=== PATIENT | female | born 2000 | race Caucasian/White ===

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

== ENCOUNTER 2018-01-24 03:37 | Inpatient (IN) | payer OTHER ==
[2018-01-24] VITALS (9 sets, daily range): BP systolic 87–134; BP diastolic 42–87
[~2018-01-24] VITALS: Ht 142.2 cm; Wt 44.1 kg
--- NOTE | ~2018-01-24 | EKG ---
[place], [place] ELECTROCARDIOGRAM REPORT NAME: GIFTY MULLEN UNIT #: [id number] ROOM: [facility] DOCTOR: SANDEEP DRAFT REPORT BIRTHDATE: [birth year] 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
[~2018-01-24 03:37] MED LIST changes: +APAP325 MG PO
[2018-01-24 04:41] LABS: BILIRUBIN NEGATIVE (NEGATIVE); BLOOD NEGATIVE (NEGATIVE); CLARITY SL CLOUDY (CLEAR); COLOR YELLOW (YELLOW); GLUCOSE 3+ (NEGATIVE); KETONE 3+ (NEGATIVE); LEUKO ESTERASE NEGATIVE (NEGATIVE); NITRITE NEGATIVE (NEGATIVE); PH 5.5 (5.0-9.0); SPECIFIC GRAVITY >= 1.030 (1.005-1.030); UROBILINOGEN 0.2 E.U./dl (0.2-1.0)
[2018-01-24 04:48] LABS: BASO # 0.1 10*3/uL (0.0-0.1); BASO % 0.7 % (0.0-1.0); EOS # 0.1 10*3/uL (0.0-0.4); EOS % 0.6 % (1.0-4.0); HEMATOCRIT 45.3 % (37.0-47.0); HEMOGLOBIN 15.9 g/dl (12.0-16.0); LYMPH # 3.9 10*3/uL (1.3-4.4); LYMPH % 34.7 % (27.0-41.0); MEAN CELL VOLUME 87.5 fl (81.0-99.0); MEAN CORPUSCULAR HGB 30.7 pg (27.0-31.0); MEAN CORPUSCULAR HGB CONC 35.1 g/dl (33.0-37.0); MEAN PLATELET VOLUME 10.9 fl (9.6-12.3); MONO # 0.7 10*3/uL (0.1-1.0); NEUT # 6.4 10*3/uL (2.3-7.9); NEUT % 57.7 % (47.0-73.0); PLATELET COUNT AUTOMATED 293 10*3/uL (130-400); RED BLOOD COUNT 5.18 10*6/uL (4.10-5.10); WHITE BLOOD COUNT 11.1 10*3/uL (4.8-10.8)
[2018-01-24 04:52] LABS: BACTERIA 3+
[2018-01-24 05:08] LABS: ALBUMIN 4.7 gm/dl (3.1-4.5); ALKALINE PHOSPHATASE 130 U/L (45-117); BUN 19 mg/dl (7-24); CHLORIDE 96 mmol/L (98-107); CREATININE 0.93 mg/dL (0.55-1.02); POTASSIUM 4.3 mmol/L (3.5-5.1); SGOT/AST 14 IU/L (3-35); SGPT/ALT 18 U/L (12-78); SODIUM 132 mmol/L (136-145); TOTAL PROTEIN 8.6 gm/dL (6.4-8.2); TROPONIN I < 0.015 ng/ml (<0.045)
[2018-01-24 08:40] LABS: ALBUMIN 3.4 gm/dl (3.1-4.5); ALKALINE PHOSPHATASE 87 U/L (45-117); BUN 14 mg/dl (7-24); CHLORIDE 108 mmol/L (98-107); CREATININE 0.58 mg/dL (0.55-1.02); SGOT/AST 9 IU/L (3-35); SGPT/ALT 13 U/L (12-78); SODIUM 137 mmol/L (136-145); TOTAL PROTEIN 6.2 gm/dL (6.4-8.2)
[2018-01-24 11:19] LABS: ALBUMIN 2.9 gm/dl (3.1-4.5); ALKALINE PHOSPHATASE 76 U/L (45-117); BUN 11 mg/dl (7-24); CHLORIDE 113 mmol/L (98-107); CREATININE 0.59 mg/dL (0.55-1.02); SGOT/AST 7 IU/L (3-35); SGPT/ALT 12 U/L (12-78); SODIUM 139 mmol/L (136-145); TOTAL PROTEIN 5.5 gm/dL (6.4-8.2)
[2018-01-24 16:42] LABS: BUN 10 mg/dl (7-24); CHLORIDE 113 mmol/L (98-107); CREATININE 0.77 mg/dL (0.55-1.02); SODIUM 138 mmol/L (136-145)
[2018-01-24 23:34] LABS: BUN 13 mg/dl (7-24); CHLORIDE 111 mmol/L (98-107); POTASSIUM 3.8 mmol/L (3.5-5.1); SODIUM 141 mmol/L (136-145)
[2018-01-25] VITALS: BP 82/49
[2018-01-25 04:00] VITALS: BP 92/53
[2018-01-25 05:47] LABS: BUN 11 mg/dl (7-24); CHLORIDE 111 mmol/L (98-107); CREATININE 0.49 mg/dL (0.55-1.02); PHOSPHOROUS 3.3 mg/dL (2.5-4.9); POTASSIUM 3.8 mmol/L (3.5-5.1); SODIUM 142 mmol/L (136-145)
[2018-01-25 06:07] LABS: BASO # 0.1 10*3/uL (0.0-0.1); BASO % 0.9 % (0.0-1.0); EOS # 0.2 10*3/uL (0.0-0.4); EOS % 2.4 % (1.0-4.0); LYMPH # 3.4 10*3/uL (1.3-4.4); LYMPH % 49.9 % (27.0-41.0); MEAN CELL VOLUME 87.8 fl (81.0-99.0); MEAN CORPUSCULAR HGB 31.2 pg (27.0-31.0); MEAN CORPUSCULAR HGB CONC 35.5 g/dl (33.0-37.0); MEAN PLATELET VOLUME 10.8 fl (9.6-12.3); MONO # 0.6 10*3/uL (0.1-1.0); MONO % 8.2 % (3.0-9.0); NEUT # 2.6 10*3/uL (2.3-7.9); NEUT % 38.5 % (47.0-73.0); PLATELET COUNT AUTOMATED 215 10*3/uL (130-400); RED BLOOD COUNT 3.85 10*6/uL (4.10-5.10); RED CELL DISTRI WIDTH 12.5 % (0-14.5); WHITE BLOOD COUNT 6.7 10*3/uL (4.8-10.8)
[2018-01-25 06:10] LABS: HEMATOCRIT 33.8 % (37.0-47.0)
[2018-01-25 08:00] VITALS: BP 88/50
[2018-01-25 12:00] VITALS: BP 90/54
[2018-01-25] MEDS ORDERED: OMNICEF300 MG PO (16:26)
== END 2018-01-25 16:37 | disposition home or self-care (01) | DRG 689 ==
LOC: ED 03:37 → ICCU 05:31 → EDHOLD 05:31 → ICCU 05:48 → 4E 01-25 13:50
PROVIDERS: Emergency Medicine; Internal Medicine; Student in an Organized Health Care Education/Training Program
DX: N39.0 Urinary tract infection, site not specified (principal); E10.10 Type 1 diabetes mellitus with ketoacidosis without coma; E55.9 Vitamin D deficiency, unspecified; J45.909 Unspecified asthma, uncomplicated; Z82.49 Family history of ischemic heart disease and other diseases of the circulatory system; Z91.030 Bee allergy status; Z79.899 Other long term (current) drug therapy; Z98.891 History of uterine scar from previous surgery; Z83.3 Family history of diabetes mellitus; Z85.43 Personal history of malignant neoplasm of ovary

== ENCOUNTER 2018-02-03 01:35 | Inpatient (IN) | payer OTHER ==
[~2018-02-03] VITALS: Ht 142.2 cm; Wt 46.3 kg
[2018-02-03] VITALS (10 sets, daily range): BP systolic 86–111; BP diastolic 42–59
--- NOTE | ~2018-02-03 | EKG ---
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
--- NOTE | ~2018-02-03 | PR ---
[place], [place] PROGRESS NOTE NAME: GIFTY MULLEN UNIT #: [id number] ROOM: 530 DOCTOR: JASON LIMON MD BIRTHDATE: [birth year] DOS: 02/05/2018 SUBJECTIVE: The patient has been admitted to the hospital with pain in the back with acute urinary tract infection and uncontrolled diabetes mellitus. She is feeling better today. She does not have any nausea, no vomiting, no diarrhea, no fever or chills, no pain in the back and she is eating fairly good without much problem. She has juvenile diabetes and on insulin pump. Her basic metabolic profile today shows glucose 149, BUN 4, creatinine 0.5, chloride 111, potassium 7.3, other values are all normal. Her urine culture is negative. Her blood culture is negative. WILMER, MRSA is positive. PHYSICAL EXAMINATION: VITAL SIGNS: Her blood pressure is 128/88, pulse 68, respirations 16, temperature 98.2. CHEST: Clear. HEART: Regular. ABDOMEN: Soft. AJSON LIMON MD CM:PNTRANS [id number] JASON LIMON MD 02/07/18 1054 interface
[~2018-02-03 01:35] MED LIST changes: +OMNICEF300 MG PO
[2018-02-03 02:37] LABS: BASO # 0.1 10*3/uL (0.0-0.1); BASO % 0.4 % (0.0-1.0); HEMATOCRIT 39.8 % (37.0-47.0); LYMPH # 2.2 10*3/uL (1.3-4.4); LYMPH % 10.6 % (27.0-41.0); MEAN CELL VOLUME 94.1 fl (81.0-99.0); MEAN CORPUSCULAR HGB 30.7 pg (27.0-31.0); MEAN CORPUSCULAR HGB CONC 32.7 g/dl (33.0-37.0); MEAN PLATELET VOLUME 10.8 fl (9.6-12.3); MONO # 1.2 10*3/uL (0.1-1.0); MONO % 5.7 % (3.0-9.0); NEUT # 17.2 10*3/uL (2.3-7.9); NEUT % 82.8 % (47.0-73.0); PLATELET COUNT AUTOMATED 334 10*3/uL (130-400); RED BLOOD COUNT 4.23 10*6/uL (4.10-5.10); RED CELL DISTRI WIDTH 12.8 % (0-14.5); WHITE BLOOD COUNT 20.8 10*3/uL (4.8-10.8)
[2018-02-03 02:53] LABS: ALBUMIN 3.9 gm/dl (3.1-4.5); ALKALINE PHOSPHATASE 87 U/L (45-117); BUN 13 mg/dl (7-24); CHLORIDE 104 mmol/L (98-107); CREATININE 1.01 mg/dL (0.55-1.02); LIPASE 56 U/L (73-393); POTASSIUM 5.2 mmol/L (3.5-5.1); SGOT/AST 16 IU/L (3-35); SGPT/ALT 17 U/L (12-78); SODIUM 137 mmol/L (136-145); TOTAL PROTEIN 7.2 gm/dL (6.4-8.2)
[2018-02-03 02:56] LABS: B-hCG (QUALITATIVE) NEGATIVE (NEGATIVE)
[2018-02-03 04:52] LABS: BILIRUBIN NEGATIVE (NEGATIVE); BLOOD 3+ (NEGATIVE); CLARITY CLEAR (CLEAR); COLOR YELLOW (YELLOW); GLUCOSE 3+ (NEGATIVE); KETONE 3+ (NEGATIVE); LEUKO ESTERASE NEGATIVE (NEGATIVE); NITRITE NEGATIVE (NEGATIVE); UROBILINOGEN 0.2 E.U./dl (0.2-1.0)
[2018-02-03 04:54] LABS: ABG HCO3 3.6 mmol/l (22-26); ABG O2 SATURATION 97.8 % (95-97)
[2018-02-03 04:59] LABS: ABG BASE EXCESS -25.1 mmol/L (-2.0-2.0); ARTERIAL BLOOD GAS PCO2 11.9 mmHg (35-45); ARTERIAL BLOOD GAS PH 7.113 (7.35-7.45)
[2018-02-03 05:06] LABS: BACTERIA 2+; WBC 0-2 wbc/hpf (0-5)
[2018-02-03] MEDS ORDERED: ACCU-CHEK COMB1 EACH MC (05:58)
[2018-02-03 06:30] LABS: MEAN CELL VOLUME 94.9 fl (81.0-99.0); MEAN CORPUSCULAR HGB 31.4 pg (27.0-31.0); MEAN CORPUSCULAR HGB CONC 33.1 g/dl (33.0-37.0); MEAN PLATELET VOLUME 10.4 fl (9.6-12.3); PLATELET COUNT AUTOMATED 244 10*3/uL (130-400); RED CELL DISTRI WIDTH 12.9 % (0-14.5); WHITE BLOOD COUNT 25.3 10*3/uL (4.8-10.8)
[2018-02-03 06:31] LABS: HEMATOCRIT 33.2 % (37.0-47.0)
[2018-02-03 06:45] LABS: ALBUMIN 2.8 gm/dl (3.1-4.5); ALKALINE PHOSPHATASE 64 U/L (45-117); BUN 10 mg/dl (7-24); CHLORIDE 120 mmol/L (98-107); CREATININE 0.72 mg/dL (0.55-1.02); PHOSPHOROUS 2.2 mg/dL (2.5-4.9); POTASSIUM 4.4 mmol/L (3.5-5.1); SGOT/AST 18 IU/L (3-35); SGPT/ALT 17 U/L (12-78); SODIUM 145 mmol/L (136-145); TOTAL PROTEIN 5.2 gm/dL (6.4-8.2)
[2018-02-03 07:04] LABS: BASOPHILS 1 % (0-1); BURR CELLS FEW; PLATELET SUFFICIENCY NORMAL (NORMAL); TOTAL CELLS COUNTED 100 #CELLS
[2018-02-03 09:03] LABS: BUN 9 mg/dl (7-24); CHLORIDE 119 mmol/L (98-107); CREATININE 0.74 mg/dL (0.55-1.02); POTASSIUM 4.2 mmol/L (3.5-5.1); SODIUM 143 mmol/L (136-145)
[2018-02-03 11:37] LABS: BUN 8 mg/dl (7-24); CHLORIDE 116 mmol/L (98-107); CREATININE 0.76 mg/dL (0.55-1.02); POTASSIUM 4.2 mmol/L (3.5-5.1); SODIUM 141 mmol/L (136-145)
[2018-02-03 15:10] LABS: BUN 7 mg/dl (7-24); CHLORIDE 113 mmol/L (98-107); CREATININE 0.71 mg/dL (0.55-1.02); SODIUM 138 mmol/L (136-145)
[2018-02-03 18:28] LABS: BUN 6 mg/dl (7-24); CHLORIDE 114 mmol/L (98-107); CREATININE 0.76 mg/dL (0.55-1.02); POTASSIUM 3.4 mmol/L (3.5-5.1); SODIUM 138 mmol/L (136-145)
[2018-02-03 22:21] LABS: BUN 6 mg/dl (7-24); CHLORIDE 116 mmol/L (98-107); POTASSIUM 4.1 mmol/L (3.5-5.1); SODIUM 140 mmol/L (136-145)
[2018-02-04] VITALS: BP 92/62
[2018-02-04 01:47] LABS: BASO % 0.2 % (0.0-1.0); EOS # 0.1 10*3/uL (0.0-0.4); EOS % 0.4 % (1.0-4.0); HEMATOCRIT 30.4 % (37.0-47.0); HEMOGLOBIN 10.5 g/dl (12.0-16.0); LYMPH # 2.6 10*3/uL (1.3-4.4); LYMPH % 18.4 % (27.0-41.0); MEAN CORPUSCULAR HGB 31.3 pg (27.0-31.0); MEAN CORPUSCULAR HGB CONC 34.5 g/dl (33.0-37.0); MONO # 1.1 10*3/uL (0.1-1.0); MONO % 7.5 % (3.0-9.0); NEUT # 10.3 10*3/uL (2.3-7.9); NEUT % 73.2 % (47.0-73.0); PLATELET COUNT AUTOMATED 207 10*3/uL (130-400); RED BLOOD COUNT 3.36 10*6/uL (4.10-5.10); WHITE BLOOD COUNT 14.1 10*3/uL (4.8-10.8)
[2018-02-04 01:48] LABS: MEAN CELL VOLUME 90.5 fl (81.0-99.0)
[2018-02-04 01:59] LABS: BUN 5 mg/dl (7-24); CHLORIDE 114 mmol/L (98-107); CREATININE 0.55 mg/dL (0.55-1.02); POTASSIUM 3.6 mmol/L (3.5-5.1); SODIUM 140 mmol/L (136-145)
[2018-02-04 04:00] VITALS: BP 82/36
[2018-02-04 06:28] LABS: BUN 5 mg/dl (7-24); CHLORIDE 114 mmol/L (98-107); POTASSIUM 3.8 mmol/L (3.5-5.1); SODIUM 140 mmol/L (136-145)
[2018-02-04 08:00] VITALS: BP 100/80; BP 107/74
[2018-02-04 12:00] VITALS: BP 110/70
[2018-02-04 15:15] LABS: BUN 4 mg/dl (7-24); CHLORIDE 111 mmol/L (98-107); CREATININE 0.54 mg/dL (0.55-1.02); POTASSIUM 4.1 mmol/L (3.5-5.1); SODIUM 141 mmol/L (136-145)
[2018-02-04 16:00] VITALS: BP 116/80
[2018-02-04 20:00] VITALS: BP 124/88
[2018-02-05] VITALS: BP 138/82
[2018-02-05 08:00] VITALS: BP 116/65
[2018-02-05 12:00] VITALS: BP 128/88
== END 2018-02-05 14:42 | disposition left against medical advice (07) | DRG 871 ==
LOC: ED 01:35 → ICCU 03:12 → 5E 03:12 → EDHOLD 03:12 → ICCU 04:17 → 5E 02-04 17:53
PROVIDERS: Emergency Medicine Emergency Medical Services; Internal Medicine Nephrology; Student in an Organized Health Care Education/Training Program
PROC: 02H633Z Insertion of Infusion Device into Right Atrium, Percutaneous Approach (ICD-10-PCS; principal; 2018-02-03)
PROC: B244ZZZ Ultrasonography of Right Heart (ICD-10-PCS; 2018-02-03)
DX: A41.9 Sepsis, unspecified organism (principal); E10.10 Type 1 diabetes mellitus with ketoacidosis without coma; J96.01 Acute respiratory failure with hypoxia; N12 Tubulo-interstitial nephritis, not specified as acute or chronic; E87.5 Hyperkalemia; J45.909 Unspecified asthma, uncomplicated; M54.9 Dorsalgia, unspecified; E55.9 Vitamin D deficiency, unspecified; R65.20 Severe sepsis without septic shock; Z91.030 Bee allergy status; Z87.440 Personal history of urinary (tract) infections; Z98.891 History of uterine scar from previous surgery; Z80.41 Family history of malignant neoplasm of ovary; Z83.3 Family history of diabetes mellitus; Z82.49 Family history of ischemic heart disease and other diseases of the circulatory system

== ENCOUNTER → 2018-03-10 | Outpatient (CLI) | payer OTHER ==
[~2018-03-10] MED LIST changes: +ACCU-CHEK COMB1 EACH MC
== END | disposition home or self-care (01) ==
LOC: US 15:00
DX: N80.9 Endometriosis, unspecified (principal); R10.2 Pelvic and perineal pain

== ENCOUNTER 2018-11-03 21:23 | Emergency (ER) | payer SELFPAY ==
[~2018-11-03] VITALS: Wt 54.4 kg
[2018-11-03 21:23] VITALS: BP 110/86
[~2018-11-03 21:23] MED LIST changes: +DIFLUCAN150 MG PO; +FLAGYL500 MG PO
[2018-11-03 21:53] LABS: BILIRUBIN NEGATIVE (NEGATIVE); BLOOD NEGATIVE (NEGATIVE); CLARITY CLEAR (CLEAR); COLOR YELLOW (YELLOW); GLUCOSE NEGATIVE (NEGATIVE); KETONE NEGATIVE (NEGATIVE); LEUKO ESTERASE TRACE (NEGATIVE); NITRITE NEGATIVE (NEGATIVE); SPECIFIC GRAVITY 1.025 (1.005-1.030)
[2018-11-03 22:01] LABS: BACTERIA TRACE; EPITHELIAL CELLS 21-30; WBC 21-30 wbc/hpf (0-5)
[2018-11-03 22:24] LABS: BASO # 0.1 10*3/uL (0.0-0.1); BASO % 0.5 % (0.0-1.0); EOS # 0.1 10*3/uL (0.0-0.4); EOS % 0.6 % (1.0-4.0); HEMATOCRIT 42.3 % (37.0-47.0); HEMOGLOBIN 14.4 g/dl (12.0-16.0); LYMPH # 2.9 10*3/uL (1.3-4.4); LYMPH % 20.2 % (27.0-41.0); MEAN CELL VOLUME 87.9 fl (81.0-99.0); MEAN CORPUSCULAR HGB 29.9 pg (27.0-31.0); MEAN PLATELET VOLUME 10.2 fl (9.6-12.3); MONO # 0.7 10*3/uL (0.1-1.0); MONO % 4.8 % (3.0-9.0); NEUT # 10.7 10*3/uL (2.3-7.9); NEUT % 73.6 % (47.0-73.0); PLATELET COUNT AUTOMATED 301 10*3/uL (130-400); RED BLOOD COUNT 4.81 10*6/uL (4.10-5.10); RED CELL DISTRI WIDTH 12.1 % (0-14.5); WHITE BLOOD COUNT 14.5 10*3/uL (4.8-10.8)
[2018-11-03 22:40] LABS: ALBUMIN 3.8 gm/dl (3.1-4.5); ALKALINE PHOSPHATASE 114 U/L (45-117); BUN 18 mg/dl (7-24); CHLORIDE 104 mmol/L (98-107); CREATININE 1.06 mg/dL (0.55-1.02); LIPASE 72 U/L (73-393); POTASSIUM 3.6 mmol/L (3.5-5.1); SGOT/AST 13 IU/L (3-35); SGPT/ALT 17 U/L (12-78); SODIUM 139 mmol/L (136-145); TOTAL PROTEIN 7.7 gm/dL (6.4-8.2)
[2018-11-03 22:43] LABS: B-hCG (QUALITATIVE) NEGATIVE (NEGATIVE)
[2018-11-04] MEDS ORDERED: AMINOPHYLLIN200 MG PO (01:46)
== END 2018-11-04 01:54 | disposition home or self-care (01) ==
LOC: ED 21:23
PROVIDERS: Physician Assistant
DX: N39.0 Urinary tract infection, site not specified (principal); N89.8 Other specified noninflammatory disorders of vagina; F17.200 Nicotine dependence, unspecified, uncomplicated; Z91.030 Bee allergy status

== ENCOUNTER → 2018-12-08 | Outpatient (CLI) | payer SELFPAY ==
[~2018-12-08] MED LIST changes: +AMINOPHYLLIN200 MG PO
[2018-12-08 09:30] LABS: BILIRUBIN NEGATIVE (NEGATIVE); BLOOD NEGATIVE (NEGATIVE); CLARITY SL CLOUDY (CLEAR); COLOR YELLOW (YELLOW); GLUCOSE 3+ (NEGATIVE); KETONE 2+ (NEGATIVE); LEUKO ESTERASE 1+ (NEGATIVE); NITRITE NEGATIVE (NEGATIVE); UROBILINOGEN 0.2 E.U./dl (0.2-1.0)
[2018-12-08 09:36] LABS: BACTERIA 1+; WBC TNTC wbc/hpf (0-5)
== END | disposition home or self-care (01) ==
LOC: RESCLI 00:45
PROVIDERS: Internal Medicine
DX: E10.65 Type 1 diabetes mellitus with hyperglycemia (principal); J45.20 Mild intermittent asthma, uncomplicated; B37.3 Candidiasis of vulva and vagina; R53.83 Other fatigue

== ENCOUNTER 2019-02-08 13:48 | Emergency (ER) | payer OTHER ==
[~2019-02-08] VITALS: Ht 142.2 cm; Wt 46.7 kg
[2019-02-08 13:49] VITALS: BP 123/83
[2019-02-08] MEDS ORDERED: IBUPROFEN600 MG PO (15:32)
[2019-02-08] MEDS ORDERED: AMOXICILLIN500 M2 PO ×2 (15:32→15:51)
== END 2019-02-08 16:08 | disposition home or self-care (01) ==
LOC: ED 13:48
DX: K02.9 Dental caries, unspecified (principal); E11.9 Type 2 diabetes mellitus without complications; J45.909 Unspecified asthma, uncomplicated; Z91.030 Bee allergy status; Z79.4 Long term (current) use of insulin

== ENCOUNTER → 2019-02-14 | Outpatient (CLI) | payer OTHER ==
[~2019-02-14] MED LIST changes: +AMOXICILLIN500 M2 PO; +IBUPROFEN600 MG PO
[2019-02-14 12:43] LABS: BASO # 0.1 10*3/uL (0.0-0.1); EOS # 0.1 10*3/uL (0.0-0.4); EOS % 1.9 % (1.0-4.0); HEMATOCRIT 39.5 % (37.0-47.0); HEMOGLOBIN 13.7 g/dl (12.0-16.0); LYMPH # 2.5 10*3/uL (1.3-4.4); MEAN CELL VOLUME 87.8 fl (81.0-99.0); MEAN CORPUSCULAR HGB 30.4 pg (27.0-31.0); MEAN CORPUSCULAR HGB CONC 34.7 g/dl (33.0-37.0); MEAN PLATELET VOLUME 10.1 fl (9.6-12.3); MONO # 0.5 10*3/uL (0.1-1.0); MONO % 7.6 % (3.0-9.0); NEUT # 3.1 10*3/uL (2.3-7.9); NEUT % 49.3 % (47.0-73.0); PLATELET COUNT AUTOMATED 301 10*3/uL (130-400); RED CELL DISTRI WIDTH 12.1 % (0-14.5); WHITE BLOOD COUNT 6.2 10*3/uL (4.8-10.8)
[2019-02-14 12:59] LABS: ALBUMIN 3.5 gm/dl (3.1-4.5); ALKALINE PHOSPHATASE 86 U/L (45-117); BUN 14 mg/dl (7-24); CHLORIDE 104 mmol/L (98-107); CHOLESTEROL 146 mg/dL (<200); CREATININE 0.63 mg/dL (0.55-1.02); HDL CHOLESTEROL 39 mg/dl (40-60); LDL CHOLESTEROL 76 mg/dL (9-159); SGOT/AST 11 IU/L (3-35); SGPT/ALT 21 U/L (12-78); SODIUM 137 mmol/L (136-145); TOTAL PROTEIN 7.2 gm/dL (6.4-8.2); TRIGLYCERIDES 154 mg/dl (<150); VLDL CHOLESTEROL 31 mg/dL (6-40)
[2019-02-14 13:10] LABS: BILIRUBIN NEGATIVE (NEGATIVE); BLOOD NEGATIVE (NEGATIVE); CLARITY SL CLOUDY (CLEAR); COLOR YELLOW (YELLOW); GLUCOSE TRACE (NEGATIVE); KETONE 1+ (NEGATIVE); LEUKO ESTERASE 1+ (NEGATIVE); NITRITE NEGATIVE (NEGATIVE)
[2019-02-14 13:58] LABS: BACTERIA 3+; YEAST 2+
[2019-02-14 13:59] LABS: WBC 21-30 wbc/hpf (0-5)
== END | disposition home or self-care (01) ==
LOC: RESCLI 01:28
PROVIDERS: Internal Medicine
DX: Z30.011 Encounter for initial prescription of contraceptive pills (principal); E10.65 Type 1 diabetes mellitus with hyperglycemia; J45.20 Mild intermittent asthma, uncomplicated; A59.01 Trichomonal vulvovaginitis; E55.9 Vitamin D deficiency, unspecified; Z79.899 Other long term (current) drug therapy; Z79.4 Long term (current) use of insulin

== ENCOUNTER 2019-04-08 14:26 | Emergency (ER) | payer OTHER ==
[~2019-04-08] VITALS: Ht 142.2 cm; Wt 49.0 kg
[2019-04-08 14:40] VITALS: BP 121/82
[2019-04-08 15:10] LABS: BILIRUBIN NEGATIVE (NEGATIVE); BLOOD 3+ (NEGATIVE); CLARITY CLEAR (CLEAR); COLOR YELLOW (YELLOW); GLUCOSE NEGATIVE (NEGATIVE); KETONE NEGATIVE (NEGATIVE); LEUKO ESTERASE NEGATIVE (NEGATIVE); NITRITE NEGATIVE (NEGATIVE); SPECIFIC GRAVITY 1.025 (1.005-1.030); UROBILINOGEN 0.2 E.U./dl (0.2-1.0)
[2019-04-08 15:16] LABS: BACTERIA 1+; EPITHELIAL CELLS 21-30
[2019-04-08 15:27] LABS: BASO # 0.1 10*3/uL (0.0-0.1); BASO % 0.9 % (0.0-1.0); EOS # 0.2 10*3/uL (0.0-0.4); HEMATOCRIT 41.5 % (37.0-47.0); HEMOGLOBIN 14.3 g/dl (12.0-16.0); LYMPH # 3.1 10*3/uL (1.3-4.4); LYMPH % 48.2 % (27.0-41.0); MEAN CELL VOLUME 86.8 fl (81.0-99.0); MEAN CORPUSCULAR HGB 29.9 pg (27.0-31.0); MEAN CORPUSCULAR HGB CONC 34.5 g/dl (33.0-37.0); MONO # 0.5 10*3/uL (0.1-1.0); MONO % 7.3 % (3.0-9.0); NEUT # 2.6 10*3/uL (2.3-7.9); NEUT % 40.4 % (47.0-73.0); PLATELET COUNT AUTOMATED 325 10*3/uL (130-400); RED BLOOD COUNT 4.78 10*6/uL (4.10-5.10); RED CELL DISTRI WIDTH 12.4 % (0-14.5); WHITE BLOOD COUNT 6.4 10*3/uL (4.8-10.8)
[2019-04-08 15:44] LABS: ALBUMIN 3.6 gm/dl (3.1-4.5); BUN 14 mg/dl (7-24); CHLORIDE 110 mmol/L (98-107); CREATININE 0.81 mg/dL (0.55-1.02); POTASSIUM 3.9 mmol/L (3.5-5.1); SGOT/AST 10 IU/L (3-35); SGPT/ALT 19 U/L (12-78); SODIUM 141 mmol/L (136-145)
[2019-04-08 15:46] LABS: ALKALINE PHOSPHATASE 98 U/L (45-117)
== END 2019-04-08 15:56 | disposition home or self-care (01) ==
LOC: ED 14:26
PROVIDERS: Nurse Practitioner Family
DX: N94.6 Dysmenorrhea, unspecified (principal); J45.909 Unspecified asthma, uncomplicated; E10.9 Type 1 diabetes mellitus without complications; Z91.030 Bee allergy status; Z79.899 Other long term (current) drug therapy; Z79.2 Long term (current) use of antibiotics; Z79.4 Long term (current) use of insulin

== ENCOUNTER 2019-05-21 13:34 | Emergency (ER) | payer OTHER ==
[~2019-05-21] VITALS: Ht 142.2 cm; Wt 49.0 kg
[2019-05-21 13:44] VITALS: BP 123/77
[2019-05-21] MEDS ORDERED: VIBRAMYCIN100 MG PO (14:28)
[2019-05-21 14:58] LABS: BILIRUBIN NEGATIVE (NEGATIVE); BLOOD 2+ (NEGATIVE); CLARITY CLEAR (CLEAR); COLOR YELLOW (YELLOW); GLUCOSE 3+ (NEGATIVE); KETONE 2+ (NEGATIVE); LEUKO ESTERASE NEGATIVE (NEGATIVE); NITRITE NEGATIVE (NEGATIVE); UROBILINOGEN 0.2 E.U./dl (0.2-1.0)
[2019-05-21 14:59] LABS: BACTERIA 1+
[2019-05-24 16:10] LABS: GONOCOCCUS BY NAA Negative (Negative)
== END 2019-05-21 14:33 | disposition home or self-care (01) ==
LOC: ED 13:34
PROVIDERS: Emergency Medicine
DX: R11.0 Nausea (principal); Z20.2 Contact with and (suspected) exposure to infections with a predominantly sexual mode of transmission; E10.9 Type 1 diabetes mellitus without complications; F17.200 Nicotine dependence, unspecified, uncomplicated; J45.909 Unspecified asthma, uncomplicated; Z79.899 Other long term (current) drug therapy; Z79.2 Long term (current) use of antibiotics; Z79.4 Long term (current) use of insulin

== ENCOUNTER 2019-06-13 22:37 | Emergency (ER) | payer OTHER ==
[~2019-06-13] VITALS: Ht 142.2 cm; Wt 45.4 kg
[~2019-06-13 22:37] MED LIST changes: +VIBRAMYCIN100 MG PO
[2019-06-13 22:46] VITALS: BP 115/81
[2019-06-13] MEDS ORDERED: HUMALOG100 UNIT/1 SQ (22:48)
[2019-06-13] MEDS ORDERED: AMOXICILLIN500 M2 PO (23:55)
== END 2019-06-14 00:10 | disposition home or self-care (01) ==
LOC: ED 22:37
DX: J03.90 Acute tonsillitis, unspecified (principal); J45.909 Unspecified asthma, uncomplicated; E10.9 Type 1 diabetes mellitus without complications; Z91.030 Bee allergy status

== ENCOUNTER 2019-07-10 14:00 | Inpatient (IN) | payer OTHER ==
[~2019-07-10] VITALS: Ht 142.2 cm; Wt 46.0 kg
[2019-07-10] VITALS (7 sets, daily range): BP systolic 105–128; BP diastolic 56–88
[~2019-07-10 14:00] MED LIST changes: +HUMALOG100 UNIT/1 SQ
--- NOTE | 2019-07-10 14:43 | NUR ---
MEDICATIONS PER Bonnie KIDD RN
[2019-07-10 15:22] LABS: BASO # 0.1 10*3/uL (0.0-0.1); BASO % 1.2 % (0.0-1.0); EOS % 0.2 % (1.0-4.0); HEMATOCRIT 44.7 % (37.0-47.0); LYMPH # 2.7 10*3/uL (1.3-4.4); LYMPH % 28.7 % (27.0-41.0); MEAN CELL VOLUME 87.1 fl (81.0-99.0); MEAN CORPUSCULAR HGB CONC 35.6 g/dl (33.0-37.0); MEAN PLATELET VOLUME 10.6 fl (9.6-12.3); MONO # 0.5 10*3/uL (0.1-1.0); MONO % 5.1 % (3.0-9.0); NEUT % 64.6 % (47.0-73.0); PLATELET COUNT AUTOMATED 303 10*3/uL (130-400); RED BLOOD COUNT 5.13 10*6/uL (4.10-5.10); WHITE BLOOD COUNT 9.3 10*3/uL (4.8-10.8)
[2019-07-10 15:35] LABS: INTERNATIONAL NORM RATIO 0.9 (2.0-3.5)
[2019-07-10 15:40] LABS: ALBUMIN 3.9 gm/dl (3.1-4.5); ALKALINE PHOSPHATASE 127 U/L (45-117); BUN 21 mg/dl (7-24); CHLORIDE 101 mmol/L (98-107); CREATININE 0.86 mg/dL (0.55-1.02); LIPASE 45 U/L (73-393); POTASSIUM 4.2 mmol/L (3.5-5.1); SGOT/AST 20 IU/L (3-35); SGPT/ALT 22 U/L (12-78); SODIUM 131 mmol/L (136-145); TOTAL PROTEIN 7.8 gm/dL (6.4-8.2)
[2019-07-10 15:55] LABS: BETA-HCG, QUANT < 1.0 mIU/mL (1-3); TROPONIN I < 0.015 ng/ml (<0.045)
[2019-07-10 16:15] LABS: BILIRUBIN NEGATIVE (NEGATIVE); CLARITY CLEAR (CLEAR); COLOR YELLOW (YELLOW); GLUCOSE 2+ (NEGATIVE); KETONE 3+ (NEGATIVE)
[2019-07-10 16:16] LABS: BLOOD NEGATIVE (NEGATIVE); LEUKO ESTERASE NEGATIVE (NEGATIVE); NITRITE NEGATIVE (NEGATIVE); UROBILINOGEN 0.2 E.U./dl (0.2-1.0)
[2019-07-10 16:17] LABS: BACTERIA 1+
--- NOTE | 2019-07-10 18:10 | NUR ---
A 18, admitted to , under the services of CONOR Cantrell MD with a diagnosis of DKA. Chief complaint is DKA. Patient arrived via bed from ER. Monitor applied. Initial assessment completed. Vital signs taken and recorded. CONOR CANTRELL MD notified of admission to the unit. Orders received. See assessment for past medical history, medications and allergies. Patient and/or family oriented to unit. [facility] visitation policy reviewed. Clothing/patient valuable form completed. LAITH POWELL
--- NOTE | 2019-07-10 18:30 | NUR ---
CALLED DR. BOYKIN REGARDING ORDERS. PT TO BE ADMITTED TELEMETRY PER DR MCDONALD. INSULIN DRIP ORDERED 3 UNITS/HR. Q1H BLOOD SUGARS AND KEEP BETWEEN 200-250. PER [place], CALL RESIDENT WITH RESULTS OF BMP Q4H AND 1 HOUR BLOOD SUGARS IF OUT OF RANGE. PT VOICES NO COMPLAINTS AT THIS TIME. CALL LIGHT IN REACH
--- NOTE | 2019-07-10 20:26 | NUR ---
DR LUCIA ON THE FLOOR AND REVIEWING PATIENT'S ORDERS.
[2019-07-10 20:39] LABS: BUN 16 mg/dl (7-24); CHLORIDE 106 mmol/L (98-107); CREATININE 0.79 mg/dL (0.55-1.02); POTASSIUM 4.4 mmol/L (3.5-5.1); SODIUM 134 mmol/L (136-145)
--- NOTE | 2019-07-10 21:11 | NUR ---
BLOOD SUGAR 356. INCREASED INSULIN DRIP TO 6 UNITS PER POLICY.
--- NOTE | 2019-07-10 22:57 | NUR ---
DR LUCIA STATES TO NOT GIVE SECOND DOSE OF PO POTASSIUM.
--- NOTE | 2019-07-10 23:28 | NUR ---
PATIENT'S INSULIN FROM HOME AND INSLUIN PUMP LOCKED IN [facility]. BETHANIE MORALES VERIFIED
[2019-07-11] VITALS: BP 149/53; BP 99/66
[2019-07-11 00:13] LABS: BUN 17 mg/dl (7-24); CHLORIDE 107 mmol/L (98-107); CREATININE 0.91 mg/dL (0.55-1.02); POTASSIUM 4.1 mmol/L (3.5-5.1); SODIUM 136 mmol/L (136-145)
--- NOTE | 2019-07-11 01:48 | NUR ---
PATIENT RESTING IN BED PLAYING ON PHONE. PATIENT C/O HUNGER AND THIRST. FRESH ICE WATER AND POPSICLE PROVIDED. ENCOURAGED PATIENT TO DRINK WATER. DENIES BLURRY VISION OR OTHER HYPERGLYCEMIC SIDE EFFECTS. DENIES PAIN OR SHORTNESS OF BREATH. BED IN LOWEST POSITION, CALL LIGHT IN REACH
--- NOTE | 2019-07-11 03:03 | NUR ---
DR LUCIA AWARE OF BLOOD SUGAR AND DRIP OFF
[2019-07-11 06:04] LABS: BASO # 0.1 10*3/uL (0.0-0.1); BASO % 0.8 % (0.0-1.0); EOS # 0.2 10*3/uL (0.0-0.4); EOS % 1.8 % (1.0-4.0); LYMPH # 4.4 10*3/uL (1.3-4.4); LYMPH % 45.4 % (27.0-41.0); MEAN CELL VOLUME 87.5 fl (81.0-99.0); MEAN CORPUSCULAR HGB 31.3 pg (27.0-31.0); MEAN CORPUSCULAR HGB CONC 35.7 g/dl (33.0-37.0); MEAN PLATELET VOLUME 10.4 fl (9.6-12.3); MONO % 9.8 % (3.0-9.0); NEUT # 4.1 10*3/uL (2.3-7.9); NEUT % 42.1 % (47.0-73.0); PLATELET COUNT AUTOMATED 239 10*3/uL (130-400); RED CELL DISTRI WIDTH 12.2 % (0-14.5); WHITE BLOOD COUNT 9.7 10*3/uL (4.8-10.8)
[2019-07-11 06:13] LABS: PHOSPHOROUS 2.7 mg/dL (2.5-4.9)
--- NOTE | 2019-07-11 07:02 | NUR ---
SPOKE WITH DR LUCIA REGARDING PATIENT'S PUTTING INSULIN PUMP BACK ON. HE STATES NOT TO HAVE PATIENT CONNECT INSULIN PUMP AT THIS TIME.
--- NOTE | 2019-07-11 07:49 | NUR ---
PT REQUESTED TO WAIT FOR HER 3UNITS OF INSULIN. WOULD LIKE HER BREAKFAST TO ARRIVE TO ROOM FIRST.
[2019-07-11 08:00] VITALS: BP 96/60
--- NOTE | 2019-07-11 09:00 | NUR ---
Software Release Engineer in to talk to patient. Patient states lives at home with her parents. There are 5 steps in the home. Physician: Dr. Marco Truong [facility]: [facility] Home health services: none Patient's level of ADLs: INDEPENDENT Patient has working utilities: yes DME: none Follow-up physician's appointment after d/c: she prefers to make her own follow up appt after discharge Does patient want to access PORTAL?: no Discharge plan discussed with patient. She lives at home with her parents. She is independent in her ADLs and ambulation. Discussed home health care services and she denies any home needs at this time. When medically stable she will be discharged to home. She states her boyfriend will provide transportation on discharge. JOSIE ASHLEY
--- NOTE | 2019-07-11 10:06 | NUR ---
NOTIFIED OF BSG 366. NEW ORDERS FOR 6UNITS INSUIN GIVEN. ORDERED TO RECHECK IN 1 HR. WILL MONITOR.
[2019-07-11 10:26] LABS: BUN 17 mg/dl (7-24); CHLORIDE 112 mmol/L (98-107); CREATININE 0.63 mg/dL (0.55-1.02); POTASSIUM 3.9 mmol/L (3.5-5.1); SODIUM 139 mmol/L (136-145)
--- NOTE | 2019-07-11 11:00 | NUR ---
AWARE OF BSG 365. SAID SHE WANTED TO LOOK AT HER LAB WORK AND THEN PUT IN ORDERS. INFORMED HER THAT LAB WAS IN TO DRAW BMP ON PT AT 1100 AND SHOULD HAVE NEW RESULTS SOON.
--- NOTE | 2019-07-11 11:10 | NUR ---
CALLED BACK. ORDERED TO GIVE 10 UNITS INSLUIN AND RECHECK BSG IN 2 HOURS. SEE MAR.
[2019-07-11 11:16] LABS: BUN 17 mg/dl (7-24); CHLORIDE 107 mmol/L (98-107); CREATININE 0.79 mg/dL (0.55-1.02); POTASSIUM 4.2 mmol/L (3.5-5.1); SODIUM 137 mmol/L (136-145)
[2019-07-11 12:00] VITALS: BP 97/56
--- NOTE | 2019-07-11 13:06 | NUR ---
NOTIFIED BSG 353. OK FOR PT TO PLACE INSULIN PUMP AND TO GIVE 10UNIT INSULIN. SEE MAR.
--- NOTE | 2019-07-11 14:05 | NUR ---
AND ROUNDING ON PT. BSG 307 AFTER INSULIN PUMP WAS PLACED. ORDERED TO GIVE 6 UNITS. OK TO DO BSG CHECKS Q3H.
[2019-07-11 15:55] LABS: BUN 17 mg/dl (7-24); CHLORIDE 110 mmol/L (98-107); CREATININE 0.72 mg/dL (0.55-1.02); POTASSIUM 3.7 mmol/L (3.5-5.1); SODIUM 138 mmol/L (136-145)
[2019-07-11 16:00] VITALS: BP 84/58
--- NOTE | 2019-07-11 17:03 | NUR ---
BSG 55. ASYMPTOMATIC. EATING HOT DOG SHOPPE. AWARE. ORDERED TO CHECK BSG IN 1 HR.
--- NOTE | 2019-07-11 17:31 | NUR ---
BP 84/58. AWARE. PT ASYMPOTMATIC AND EATING WHILE TALKING ON PHONE. ORDERED TO MONITOR. NO NEW ORDERS AT THIS TIME.
--- NOTE | 2019-07-11 17:36 | NUR ---
CALLED BACK. ORDERED TO GIVE 1 BOLUS OF NS. SEE MAR.
[2019-07-11 18:44] VITALS: BP 96/58
--- NOTE | 2019-07-11 18:44 | NUR ---
BP 96/58 MANUAL FOLLOWING NS BOLUS. NO VOICED COMPLAINTS.
[2019-07-11 20:00] VITALS: BP 104/70
--- NOTE | 2019-07-11 20:13 | NUR ---
SPOKE WITH DR LUCIA REGARDING PATIENT'S BLOOD SUGAR. HE STATES TO NOT GIVE ANY SC INSULIN, HAVE PATIENT BOLUS SELF FROM INSULIN PUMP. PATIENT GAVE 3.9 UNITS OF INSULIN VIA INSULIN PUMP.
--- NOTE | 2019-07-11 21:59 | NUR ---
PATIENT BLOOD SUGAR 351. PATIENT WANTS TO HAVE SNACK AT THIS TIME. DR LUCIA STATES FOR PATIENT TO GIVE SELF INSULIN VIA PUMP AGAIN. PATIENT BOLUSING SELF VIA INSULIN PUMP WITH 13.6 UNITS FOR BLOOD SUGAR COVERAGE AND 56 GRAMS OF CARBS.
[2019-07-12] VITALS: BP 101/71
--- NOTE | 2019-07-12 01:35 | NUR ---
PATIENT REFUSING HEART MONITOR AT THIS TIME
--- NOTE | 2019-07-12 02:06 | NUR ---
PATIENT SELF BOLUSED 1.8 UNITS OF INSULIN VIA PUMP
--- NOTE | 2019-07-12 02:44 | NUR ---
DR LUCIA AWARE OF PATIENT REFUSING MONITOR
[2019-07-12 06:13] LABS: BASO # 0.1 10*3/uL (0.0-0.1); BASO % 0.8 % (0.0-1.0); EOS # 0.1 10*3/uL (0.0-0.4); EOS % 1.5 % (1.0-4.0); HEMATOCRIT 37.3 % (37.0-47.0); LYMPH % 43.6 % (27.0-41.0); MEAN CORPUSCULAR HGB 31.5 pg (27.0-31.0); MEAN CORPUSCULAR HGB CONC 35.4 g/dl (33.0-37.0); MEAN PLATELET VOLUME 10.2 fl (9.6-12.3); MONO # 0.7 10*3/uL (0.1-1.0); MONO % 7.6 % (3.0-9.0); NEUT # 4.2 10*3/uL (2.3-7.9); NEUT % 46.3 % (47.0-73.0); PLATELET COUNT AUTOMATED 220 10*3/uL (130-400); RED BLOOD COUNT 4.19 10*6/uL (4.10-5.10); RED CELL DISTRI WIDTH 12.6 % (0-14.5); WHITE BLOOD COUNT 9.1 10*3/uL (4.8-10.8)
[2019-07-12 06:39] LABS: BUN 13 mg/dl (7-24); CHLORIDE 107 mmol/L (98-107); CREATININE 0.57 mg/dL (0.55-1.02); POTASSIUM 3.3 mmol/L (3.5-5.1); SODIUM 140 mmol/L (136-145)
[2019-07-12 08:00] VITALS: BP 91/55
--- NOTE | 2019-07-12 09:00 | NUR ---
Metal Cnc Operator spoke to patient via phone. No new needs or request at this time. She denies any home needs. When medically stable she will be discharged to home.
--- NOTE | 2019-07-12 10:19 | NUR ---
PT REFUSED 10AM COVERAGE, PER PT SHE GAVE HERSELF 6.5 UNITS VIA HER INSULIN PUMP
--- NOTE | 2019-07-12 13:19 | NUR ---
Discharge instructions reviewed with patient/family. Patient receptive and verbalizes understanding. Follow-up care arranged. Written instructions given to patient/family. LUCA CLAIRE
== END 2019-07-12 13:19 | disposition home or self-care (01) | DRG 420 ==
LOC: ED 14:00 → 4E 17:06 → EDHOLD 17:06 → 4E 17:18
PROVIDERS: Emergency Medicine; Hospitalist; Internal Medicine; ADMIT Internal Medicine
DX: E10.10 Type 1 diabetes mellitus with ketoacidosis without coma (principal); J45.909 Unspecified asthma, uncomplicated; E55.9 Vitamin D deficiency, unspecified; I95.9 Hypotension, unspecified; F17.210 Nicotine dependence, cigarettes, uncomplicated; R74.8 Abnormal levels of other serum enzymes; R00.0 Tachycardia, unspecified; Z87.440 Personal history of urinary (tract) infections; Z98.891 History of uterine scar from previous surgery; Z83.3 Family history of diabetes mellitus; Z82.49 Family history of ischemic heart disease and other diseases of the circulatory system; Z80.41 Family history of malignant neoplasm of ovary; Z91.030 Bee allergy status

== ENCOUNTER 2019-09-06 02:12 | Emergency (ER) | payer OTHER ==
[~2019-09-06] VITALS: Ht 142.2 cm; Wt 45.4 kg
[2019-09-06 02:56] LABS: BASO % 0.5 % (0.0-1.0); EOS # 0.1 10*3/uL (0.0-0.4); EOS % 1.2 % (1.0-4.0); HEMATOCRIT 39.7 % (37.0-47.0); LYMPH # 2.7 10*3/uL (1.3-4.4); MEAN CORPUSCULAR HGB 31.2 pg (27.0-31.0); MEAN PLATELET VOLUME 10.7 fl (9.6-12.3); MONO # 0.5 10*3/uL (0.1-1.0); MONO % 6.2 % (3.0-9.0); NEUT # 4.9 10*3/uL (2.3-7.9); PLATELET COUNT AUTOMATED 217 10*3/uL (130-400); RED BLOOD COUNT 4.46 10*6/uL (4.10-5.10); RED CELL DISTRI WIDTH 11.8 % (0-14.5); WHITE BLOOD COUNT 8.2 10*3/uL (4.8-10.8)
[2019-09-06 03:15] LABS: ALBUMIN 3.7 gm/dl (3.1-4.5); ALKALINE PHOSPHATASE 138 U/L (45-117); BUN 15 mg/dl (7-24); CHLORIDE 100 mmol/L (98-107); CREATININE 0.87 mg/dL (0.55-1.02); POTASSIUM 4.3 mmol/L (3.5-5.1); SGOT/AST 8 IU/L (3-35); SGPT/ALT 18 U/L (12-78); SODIUM 133 mmol/L (136-145); TOTAL PROTEIN 6.9 gm/dL (6.4-8.2)
[2019-09-06 03:33] LABS: BILIRUBIN NEGATIVE (NEGATIVE); BLOOD NEGATIVE (NEGATIVE); CLARITY CLEAR (CLEAR); COLOR YELLOW (YELLOW); GLUCOSE 3+ (NEGATIVE); KETONE NEGATIVE (NEGATIVE); PH 7.5 (5.0-9.0)
[2019-09-06 03:34] LABS: LEUKO ESTERASE NEGATIVE (NEGATIVE); NITRITE NEGATIVE (NEGATIVE); UROBILINOGEN 0.2 E.U./dl (0.2-1.0)
[2019-09-06 03:40] LABS: EPITHELIAL CELLS 16-20
[2019-09-06 03:41] LABS: BACTERIA TRACE; RBC 0-2 rbc/hpf (0-2); WBC 0-2 wbc/hpf (0-5)
[2019-09-06 04:17] VITALS: BP 111/72
== END 2019-09-06 04:12 | disposition home or self-care (01) ==
LOC: ED 02:12
PROVIDERS: Emergency Medicine
DX: R10.2 Pelvic and perineal pain (principal); R10.30 Lower abdominal pain, unspecified; E11.9 Type 2 diabetes mellitus without complications; J45.909 Unspecified asthma, uncomplicated; Z91.030 Bee allergy status; Z79.4 Long term (current) use of insulin

== ENCOUNTER → 2019-09-07 | Outpatient (CLI) | payer OTHER | END | disposition home or self-care (01) | LOC: RESCLI 01:23 | DX: E10.65 Type 1 diabetes mellitus with hyperglycemia (principal); J45.20 Mild intermittent asthma, uncomplicated; R10.30 Lower abdominal pain, unspecified; M25.562 Pain in left knee; M25.561 Pain in right knee; F17.200 Nicotine dependence, unspecified, uncomplicated; Z79.899 Other long term (current) drug therapy; Z98.890 Other specified postprocedural states; Z91.030 Bee allergy status ==

== ENCOUNTER 2019-11-07 01:05 | Emergency (ER) | payer OTHER ==
[~2019-11-07] VITALS: Ht 142.2 cm; Wt 48.1 kg
[2019-11-07 01:12] VITALS: BP 110/78
[2019-11-07 01:38] LABS: BILIRUBIN NEGATIVE (NEGATIVE); CLARITY CLEAR (CLEAR); COLOR YELLOW (YELLOW); GLUCOSE NEGATIVE (NEGATIVE)
[2019-11-07 01:39] LABS: BLOOD NEGATIVE (NEGATIVE); KETONE NEGATIVE (NEGATIVE); LEUKO ESTERASE TRACE (NEGATIVE); NITRITE NEGATIVE (NEGATIVE); UROBILINOGEN 0.2 E.U./dl (0.2-1.0)
[2019-11-07 01:47] LABS: BACTERIA 2+; EPITHELIAL CELLS 21-30; WBC 16-20 wbc/hpf (0-5)
[2019-11-07] MEDS ORDERED: CEPHALEXIN500 M1 PO (02:05)
== END 2019-11-07 02:44 | disposition home or self-care (01) ==
LOC: ED 01:05
PROVIDERS: Emergency Medicine
DX: N39.0 Urinary tract infection, site not specified (principal); J45.909 Unspecified asthma, uncomplicated; R50.9 Fever, unspecified; E10.9 Type 1 diabetes mellitus without complications; Z91.030 Bee allergy status

== ENCOUNTER → 2019-11-23 | Outpatient (CLI) | payer OTHER ==
[~2019-11-23] MED LIST changes: +CEPHALEXIN500 M1 PO
== END | disposition home or self-care (01) ==
LOC: RESCLI 03:18
PROVIDERS: ATTEND Internal Medicine Nephrology
DX: Z34.90 Encounter for supervision of normal pregnancy, unspecified, unspecified trimester (principal); J01.10 Acute frontal sinusitis, unspecified; E10.65 Type 1 diabetes mellitus with hyperglycemia; J45.20 Mild intermittent asthma, uncomplicated; G89.29 Other chronic pain; F17.210 Nicotine dependence, cigarettes, uncomplicated; Z79.899 Other long term (current) drug therapy; Z98.890 Other specified postprocedural states; Z91.030 Bee allergy status

== ENCOUNTER 2019-12-05 00:44 | Emergency (ER) | payer OTHER ==
[~2019-12-05] VITALS: Ht 142.2 cm; Wt 50.3 kg
[2019-12-05 00:51] VITALS: BP 119/86
[2019-12-05 01:38] LABS: BASO # 0.1 10*3/uL (0.0-0.1); EOS # 0.3 10*3/uL (0.0-0.4); EOS % 3.2 % (1.0-4.0); HEMATOCRIT 41.7 % (37.0-47.0); LYMPH # 3.4 10*3/uL (1.3-4.4); LYMPH % 39.6 % (27.0-41.0); MEAN CELL VOLUME 86.7 fl (81.0-99.0); MEAN CORPUSCULAR HGB 30.1 pg (27.0-31.0); MEAN CORPUSCULAR HGB CONC 34.8 g/dl (33.0-37.0); MEAN PLATELET VOLUME 10.3 fl (9.6-12.3); MONO # 0.6 10*3/uL (0.1-1.0); MONO % 7.1 % (3.0-9.0); NEUT # 4.2 10*3/uL (2.3-7.9); PLATELET COUNT AUTOMATED 367 10*3/uL (130-400); RED BLOOD COUNT 4.81 10*6/uL (4.10-5.10); RED CELL DISTRI WIDTH 11.6 % (0-14.5); WHITE BLOOD COUNT 8.7 10*3/uL (4.8-10.8)
[2019-12-05 01:52] LABS: ALBUMIN 3.9 gm/dl (3.1-4.5); ALKALINE PHOSPHATASE 121 U/L (45-117); BUN 18 mg/dl (7-24); CHLORIDE 102 mmol/L (98-107); CREATININE 1.05 mg/dL (0.55-1.02); POTASSIUM 4.4 mmol/L (3.5-5.1); SGOT/AST 11 IU/L (3-35); SGPT/ALT 17 U/L (12-78); SODIUM 134 mmol/L (136-145); TOTAL PROTEIN 7.5 gm/dL (6.4-8.2)
[2019-12-05 02:13] LABS: BILIRUBIN NEGATIVE; BLOOD NEGATIVE (NEGATIVE); CLARITY CLEAR (CLEAR); COLOR YELLOW (YELLOW); GLUCOSE 3+; KETONE NEGATIVE; LEUKO ESTERASE NEGATIVE (NEGATIVE); NITRITE NEGATIVE (NEGATIVE); SPECIFIC GRAVITY > 1.030 (1.001-1.030); UROBILINOGEN 0.2 E.U./dl (0.0-1.0)
[2019-12-05 02:14] LABS: RBC 0-2 rbc/hpf (0-2); WBC 0-2 wbc/hpf (0-5)
[2019-12-05 02:45] LABS: BUN 17 mg/dl (7-24); CHLORIDE 108 mmol/L (98-107); CREATININE 0.88 mg/dL (0.55-1.02); POTASSIUM 3.5 mmol/L (3.5-5.1); SODIUM 142 mmol/L (136-145)
== END 2019-12-05 03:19 | disposition home or self-care (01) ==
LOC: ED 00:44
PROVIDERS: Emergency Medicine
DX: E10.65 Type 1 diabetes mellitus with hyperglycemia (principal); J45.909 Unspecified asthma, uncomplicated; Z91.030 Bee allergy status; Z79.4 Long term (current) use of insulin

== ENCOUNTER 2020-02-08 10:49 | Emergency (ER) | payer OTHER ==
[~2020-02-08] VITALS: Wt 51.3 kg
[2020-02-08 10:57] VITALS: BP 114/76
== END 2020-02-08 11:05 | disposition left against medical advice (07) ==
LOC: ED 10:49
DX: E10.9 Type 1 diabetes mellitus without complications (principal); R11.10 Vomiting, unspecified; R10.9 Unspecified abdominal pain; Z53.21 Procedure and treatment not carried out due to patient leaving prior to being seen by health care provider

== ENCOUNTER 2020-06-23 21:52 | Inpatient (IN) | payer OTHER ==
[2020-06-23] VITALS (8 sets, daily range): BP systolic 43–140; BP diastolic 26–87
[~2020-06-23] VITALS: Ht 142.2 cm; Wt 47.9 kg
[2020-06-23 22:45] LABS: HEMATOCRIT 46.1 % (37.0-47.0); MEAN CELL VOLUME 91.5 fl (81.0-99.0); MEAN CORPUSCULAR HGB 30.6 pg (27.0-31.0); MEAN CORPUSCULAR HGB CONC 33.4 g/dl (33.0-37.0); MEAN PLATELET VOLUME 10.9 fl (9.6-12.3); PLATELET COUNT AUTOMATED 472 10*3/uL (130-400); RED BLOOD COUNT 5.04 10*6/uL (4.10-5.10); RED CELL DISTRI WIDTH 12.9 % (0-14.5); WHITE BLOOD COUNT 31.3 10*3/uL (4.8-10.8)
[2020-06-23 23:02] LABS: ALBUMIN 4.3 gm/dl (3.1-4.5); CREATININE 1.37 mg/dL (0.55-1.02); POTASSIUM 4.8 mmol/L (3.5-5.1); TOTAL PROTEIN 8.4 gm/dL (6.4-8.2)
[2020-06-23 23:12] LABS: BASOPHILS 1 % (0-1); PLATELET SUFFICIENCY HIGH (NORMAL); TOTAL CELLS COUNTED 100 #CELLS
[2020-06-24] VITALS (11 sets, daily range): BP systolic 43–138; BP diastolic 26–80
[2020-06-24 00:08] LABS: ARTERIAL BLOOD GAS PO2 119.7 (80-90)
[2020-06-24 00:09] LABS: ABG BASE EXCESS -26.1 mmol/L (-2.0-2.0); ARTERIAL BLOOD GAS PH 7.021 (7.35-7.45)
[2020-06-24 00:49] LABS: BILIRUBIN Negative (Negative); BLOOD 1+ (Negative); CLARITY Clear (Clear); COLOR Yellow (Yellow); GLUCOSE 3+ (Negative); KETONE 3+ (Negative); LEUKO ESTERASE Negative (Negative); NITRITE Negative (Negative); SPECIFIC GRAVITY 1.025 (1.001-1.030); UROBILINOGEN 0.2 E.U./dl (0.0-1.0)
[2020-06-24] MEDS ORDERED: Motrin,Rufen800 MG PO (01:53)
[2020-06-24 02:23] LABS: BUN 11 mg/dl (7-24); CHLORIDE 117 mmol/L (98-107); CREATININE 0.91 mg/dL (0.55-1.02); POTASSIUM 4.4 mmol/L (3.5-5.1); SODIUM 141 mmol/L (136-145)
[2020-06-24 04:42] LABS: BUN 10 mg/dl (7-24); CHLORIDE 117 mmol/L (98-107); CREATININE 0.96 mg/dL (0.55-1.02); POTASSIUM 4.1 mmol/L (3.5-5.1); SODIUM 140 mmol/L (136-145)
[2020-06-24 06:08] LABS: MEAN CELL VOLUME 90.7 fl (81.0-99.0); MEAN CORPUSCULAR HGB 30.1 pg (27.0-31.0); MEAN CORPUSCULAR HGB CONC 33.2 g/dl (33.0-37.0); MEAN PLATELET VOLUME 10.8 fl (9.6-12.3); PLATELET COUNT AUTOMATED 336 10*3/uL (130-400); RED BLOOD COUNT 4.52 10*6/uL (4.10-5.10); RED CELL DISTRI WIDTH 13.1 % (0-14.5); WHITE BLOOD COUNT 30.1 10*3/uL (4.8-10.8)
[2020-06-24 06:52] LABS: BASOPHILS 1 % (0-1); PLATELET SUFFICIENCY NORMAL (NORMAL); POLYCHROMASIA SLIGHT; TOTAL CELLS COUNTED 100 #CELLS
[2020-06-24 06:53] LABS: BURR CELLS FEW
[2020-06-24 08:09] LABS: ARTERIAL BLOOD GAS PH 7.282 (7.35-7.45); ARTERIAL BLOOD GAS PO2 99.5 (80-90)
[2020-06-24 08:24] LABS: BUN 9 mg/dl (7-24); CHLORIDE 116 mmol/L (98-107); CREATININE 0.88 mg/dL (0.55-1.02); POTASSIUM 3.5 mmol/L (3.5-5.1); SODIUM 138 mmol/L (136-145)
[2020-06-24 12:59] LABS: BUN 7 mg/dl (7-24); CHLORIDE 119 mmol/L (98-107); CREATININE 0.91 mg/dL (0.55-1.02); POTASSIUM 3.5 mmol/L (3.5-5.1); SODIUM 142 mmol/L (136-145)
[2020-06-24 17:12] LABS: BUN 5 mg/dl (7-24); CHLORIDE 117 mmol/L (98-107); CREATININE 0.77 mg/dL (0.55-1.02); POTASSIUM 3.3 mmol/L (3.5-5.1); SODIUM 141 mmol/L (136-145)
[2020-06-24 21:14] LABS: BUN 6 mg/dl (7-24); CHLORIDE 116 mmol/L (98-107); CREATININE 0.75 mg/dL (0.55-1.02); POTASSIUM 3.4 mmol/L (3.5-5.1); SODIUM 141 mmol/L (136-145)
[2020-06-25] VITALS: BP 95/54
[2020-06-25 02:18] LABS: BUN 6 mg/dl (7-24); CHLORIDE 116 mmol/L (98-107); CREATININE 0.75 mg/dL (0.55-1.02); POTASSIUM 3.9 mmol/L (3.5-5.1); SODIUM 141 mmol/L (136-145)
[2020-06-25 04:00] VITALS: BP 112/73
[2020-06-25 05:01] LABS: BASO # 0.1 10*3/uL (0.0-0.1); BASO % 0.5 % (0.0-1.0); EOS # 0.1 10*3/uL (0.0-0.4); EOS % 0.5 % (1.0-4.0); HEMATOCRIT 32.3 % (37.0-47.0); LYMPH # 3.1 10*3/uL (1.3-4.4); LYMPH % 26.8 % (27.0-41.0); MEAN CORPUSCULAR HGB 30.1 pg (27.0-31.0); MEAN PLATELET VOLUME 10.1 fl (9.6-12.3); MONO # 0.9 10*3/uL (0.1-1.0); NEUT # 7.3 10*3/uL (2.3-7.9); NEUT % 63.9 % (47.0-73.0); PLATELET COUNT AUTOMATED 244 10*3/uL (130-400); RED BLOOD COUNT 3.75 10*6/uL (4.10-5.10); RED CELL DISTRI WIDTH 13.2 % (0-14.5); WHITE BLOOD COUNT 11.4 10*3/uL (4.8-10.8)
[2020-06-25 05:02] LABS: MEAN CELL VOLUME 86.1 fl (81.0-99.0)
[2020-06-25 05:23] LABS: ALBUMIN 2.8 gm/dl (3.1-4.5); ALKALINE PHOSPHATASE 75 U/L (45-117); BUN 5 mg/dl (7-24); CHLORIDE 117 mmol/L (98-107); CREATININE 0.65 mg/dL (0.55-1.02); POTASSIUM 3.5 mmol/L (3.5-5.1); SGOT/AST 17 IU/L (3-35); SGPT/ALT 21 U/L (12-78); SODIUM 144 mmol/L (136-145); TOTAL PROTEIN 5.6 gm/dL (6.4-8.2)
[2020-06-25 08:00] VITALS: BP 90/58
== END 2020-06-25 12:55 | disposition home or self-care (01) | DRG 420 ==
LOC: ED 21:52 → EDHOLD 23:52 → ICCU 23:52
PROVIDERS: Internal Medicine; Social Worker Clinical; ADMIT Emergency Medicine; ATTEND Emergency Medicine
DX: E10.10 Type 1 diabetes mellitus with ketoacidosis without coma (principal); R65.10 Systemic inflammatory response syndrome (SIRS) of non-infectious origin without acute organ dysfunction; E87.8 Other disorders of electrolyte and fluid balance, not elsewhere classified; F17.200 Nicotine dependence, unspecified, uncomplicated; J45.20 Mild intermittent asthma, uncomplicated; Z91.030 Bee allergy status; Z83.3 Family history of diabetes mellitus; Z82.49 Family history of ischemic heart disease and other diseases of the circulatory system; Z79.4 Long term (current) use of insulin; Z79.899 Other long term (current) drug therapy; E44.0 Moderate protein-calorie malnutrition; N17.0 Acute kidney failure with tubular necrosis

== ENCOUNTER → 2020-08-15 | Outpatient (CLI) | payer OTHER ==
[~2020-08-15] MED LIST changes: +Motrin,Rufen800 MG PO
== END | disposition home or self-care (01) ==
LOC: US 13:51
PROVIDERS: ATTEND Nurse Practitioner Women's Health
DX: Z34.81 Encounter for supervision of other normal pregnancy, first trimester (principal); Z3A.01 Less than 8 weeks gestation of pregnancy

== ENCOUNTER 2020-08-21 22:13 | Emergency (ER) | payer OTHER ==
[~2020-08-21] VITALS: Ht 157.4 cm; Wt 54.4 kg
[2020-08-21 22:47] LABS: BASO % 0.5 % (0.0-1.0); EOS # 0.1 10*3/uL (0.0-0.4); EOS % 0.7 % (1.0-4.0); HEMATOCRIT 38.3 % (37.0-47.0); LYMPH % 26.4 % (27.0-41.0); MEAN CELL VOLUME 89.1 fl (81.0-99.0); MEAN CORPUSCULAR HGB 30.9 pg (27.0-31.0); MEAN CORPUSCULAR HGB CONC 34.7 g/dl (33.0-37.0); MEAN PLATELET VOLUME 11.6 fl (9.6-12.3); MONO # 0.5 10*3/uL (0.1-1.0); MONO % 6.1 % (3.0-9.0); NEUT # 4.9 10*3/uL (2.3-7.9); NEUT % 66.2 % (47.0-73.0); PLATELET COUNT AUTOMATED 275 10*3/uL (130-400); RED CELL DISTRI WIDTH 12.1 % (0-14.5); WHITE BLOOD COUNT 7.4 10*3/uL (4.8-10.8)
[2020-08-21 22:55] LABS: BILIRUBIN Negative (Negative); BLOOD Negative (Negative); CLARITY Clear (Clear); COLOR Yellow (Yellow); GLUCOSE 3+ (Negative); KETONE 1+ (Negative); LEUKO ESTERASE Negative (Negative); NITRITE Negative (Negative); SPECIFIC GRAVITY >= 1.030 (1.001-1.030); UROBILINOGEN 0.2 E.U./dl (0.0-1.0)
[2020-08-21 23:05] VITALS: BP 119/81
[2020-08-21 23:25] LABS: BACTERIA TRACE
[2020-08-21 23:34] LABS: ALKALINE PHOSPHATASE 85 U/L (45-117); BUN 12 mg/dl (7-24); CHLORIDE 101 mmol/L (98-107); CREATININE 0.81 mg/dL (0.55-1.02); POTASSIUM 3.4 mmol/L (3.5-5.1); SGOT/AST 7 IU/L (3-35); SGPT/ALT 11 U/L (12-78); SODIUM 129 mmol/L (136-145); TOTAL PROTEIN 6.1 gm/dL (6.4-8.2)
== END 2020-08-22 02:15 | disposition home or self-care (01) ==
LOC: ED 22:13
PROVIDERS: Emergency Medicine
DX: E10.65 Type 1 diabetes mellitus with hyperglycemia (principal); Z91.030 Bee allergy status; Z79.4 Long term (current) use of insulin; Z79.899 Other long term (current) drug therapy

== ENCOUNTER → 2022-12-09 | Outpatient (CLI) | payer OTHER ==
[2022-12-09 09:53] LABS: BASO # 0.1 10*3/uL (0.0-0.1); BASO % 0.8 % (0.0-1.0); EOS # 0.1 10*3/uL (0.0-0.4); EOS % 1.1 % (1.0-4.0); HEMATOCRIT 40.2 % (37.0-47.0); LYMPH # 2.6 10*3/uL (1.3-4.4); MEAN CELL VOLUME 88.4 fl (81.0-99.0); MEAN CORPUSCULAR HGB 29.7 pg (27.0-31.0); MEAN CORPUSCULAR HGB CONC 33.6 g/dl (33.0-37.0); MEAN PLATELET VOLUME 10.2 fl (9.6-12.3); MONO # 0.6 10*3/uL (0.1-1.0); MONO % 6.7 % (3.0-9.0); NEUT # 6.1 10*3/uL (2.3-7.9); NEUT % 64.2 % (47.0-73.0); PLATELET COUNT AUTOMATED 300 10*3/uL (130-400); RED BLOOD COUNT 4.55 10*6/uL (4.10-5.10); RED CELL DISTRI WIDTH 12.4 % (0-14.5); WHITE BLOOD COUNT 9.5 10*3/uL (4.8-10.8)
== END | disposition home or self-care (01) ==
LOC: US 08:30 → LAB 08:36
PROVIDERS: ATTEND Nurse Practitioner Women's Health
DX: N93.9 Abnormal uterine and vaginal bleeding, unspecified (principal); E10.9 Type 1 diabetes mellitus without complications; R53.83 Other fatigue

== ENCOUNTER 2022-12-31 20:12 | Emergency (ER) | payer SELFPAY ==
[~2022-12-31] VITALS: Ht 142.2 cm; Wt 45.4 kg
[2022-12-31 20:25] VITALS: BP 109/70
[2022-12-31 20:45] LABS: BASO # 0.1 10*3/uL (0.0-0.1); EOS # 0.1 10*3/uL (0.0-0.4); EOS % 1.7 % (1.0-4.0); HEMATOCRIT 40.2 % (37.0-47.0); LYMPH # 2.3 10*3/uL (1.3-4.4); LYMPH % 38.6 % (27.0-41.0); MEAN CELL VOLUME 86.5 fl (81.0-99.0); MEAN CORPUSCULAR HGB 30.1 pg (27.0-31.0); MEAN CORPUSCULAR HGB CONC 34.8 g/dl (33.0-37.0); MEAN PLATELET VOLUME 10.1 fl (9.6-12.3); MONO # 0.5 10*3/uL (0.1-1.0); MONO % 7.5 % (3.0-9.0); NEUT # 3.1 10*3/uL (2.3-7.9); PLATELET COUNT AUTOMATED 312 10*3/uL (130-400); RED BLOOD COUNT 4.65 10*6/uL (4.10-5.10); RED CELL DISTRI WIDTH 12.4 % (0-14.5)
[2022-12-31 21:19] LABS: ALKALINE PHOSPHATASE 70 U/L (46-116); BUN 11 mg/dl (9-23); CHLORIDE 105 mmol/L (98-107); LIPASE 32 U/L (12-53); POTASSIUM 4.3 mmol/L (3.4-5.1); SGPT/ALT 7 U/L (10-49); TOTAL PROTEIN 7.1 gm/dL (6.0-8.0)
[2022-12-31 21:53] LABS: BILIRUBIN Negative (Negative); BLOOD Negative (Negative); CLARITY Clear (Clear); COLOR Yellow (Yellow); GLUCOSE 3+ (Negative); KETONE Negative (Negative); LEUKO ESTERASE Negative (Negative); NITRITE Negative (Negative); PH 6.5 (4.5-8.0); SPECIFIC GRAVITY >= 1.030 (1.001-1.030); UROBILINOGEN 0.2 E.U./dl (0.0-1.0)
[2022-12-31 21:59] LABS: RBC 0-2 rbc/hpf (0-2); WBC 0-2 wbc/hpf (0-5)
[2022-12-31 22:00] LABS: BACTERIA TRACE
== END 2022-12-31 22:51 | disposition home or self-care (01) ==
LOC: ED 20:12
PROVIDERS: Internal Medicine
DX: N20.0 Calculus of kidney (principal); R10.30 Lower abdominal pain, unspecified; E11.65 Type 2 diabetes mellitus with hyperglycemia; Z79.4 Long term (current) use of insulin; J45.909 Unspecified asthma, uncomplicated; Z91.030 Bee allergy status; Z98.890 Other specified postprocedural states; F17.200 Nicotine dependence, unspecified, uncomplicated

== ENCOUNTER 2023-02-13 21:52 | Inpatient (IN) | payer SELFPAY ==
[~2023-02-13] VITALS: Ht 142.2 cm; Wt 48.5 kg
[2023-02-13 21:58] VITALS: BP 110/60
[2023-02-13 22:27] LABS: BASO # 0.1 10*3/uL (0.0-0.1); BASO % 0.6 % (0.0-1.0); HEMATOCRIT 46.9 % (37.0-47.0); LYMPH # 2.4 10*3/uL (1.3-4.4); LYMPH % 13.7 % (27.0-41.0); MEAN CORPUSCULAR HGB 30.2 pg (27.0-31.0); MEAN CORPUSCULAR HGB CONC 34.3 g/dl (33.0-37.0); MEAN PLATELET VOLUME 10.8 fl (9.6-12.3); MONO # 0.8 10*3/uL (0.1-1.0); MONO % 4.8 % (3.0-9.0); NEUT # 14.1 10*3/uL (2.3-7.9); NEUT % 80.4 % (47.0-73.0); PLATELET COUNT AUTOMATED 414 10*3/uL (130-400); RED BLOOD COUNT 5.33 10*6/uL (4.10-5.10); RED CELL DISTRI WIDTH 12.6 % (0-14.5); WHITE BLOOD COUNT 17.5 10*3/uL (4.8-10.8)
[2023-02-13 22:38] LABS: ACT PARTIAL THROMBO TIME 28.5 SECONDS (20.0-32.1)
[2023-02-13 22:51] LABS: ALKALINE PHOSPHATASE 90 U/L (46-116); BUN 13 mg/dl (9-23); CHLORIDE 97 mmol/L (98-107); LIPASE 34 U/L (12-53); POTASSIUM 4.5 mmol/L (3.4-5.1); SGPT/ALT 11 U/L (5-49); TOTAL PROTEIN 8.4 gm/dL (6.0-8.0)
[2023-02-13 22:53] LABS: ETHYL ALCOHOL < 3.0 mg/dl (<3)
[2023-02-13 23:54] LABS: BILIRUBIN Negative (Negative); BLOOD 2+ (Negative); CLARITY Cloudy (Clear); COLOR Yellow (Yellow); GLUCOSE 3+ (Negative); KETONE 4+ (Negative); LEUKO ESTERASE Negative (Negative); NITRITE Negative (Negative); SPECIFIC GRAVITY 1.025 (1.001-1.030); UROBILINOGEN 0.2 E.U./dl (0.0-1.0)
[2023-02-14 00:01] LABS: URINE AMPHETAMINES Negative (1000ng/ml); URINE BARBITURATES Negative (200ng/ml); URINE BENZODIAZEPINES Negative (200ng/ml); URINE CANNABINOIDS (THC) Negative (50ng/ml); URINE COCAINE Negative (300ng/ml); URINE METHADONE Negative (300ng/ml); URINE OPIATES Negative (300ng/ml); URINE PHENCYCLIDINE Negative (25ng/ml)
[2023-02-14 00:13] LABS: BACTERIA 1+; RBC 16-20 rbc/hpf (0-2); YEAST 1+
[2023-02-14 00:25] VITALS: BP 131/65
[2023-02-14 01:36] LABS: ABG BASE EXCESS -23.1 mmol/L (-2.0-2.0); ARTERIAL BLOOD GAS PH 7.098 (7.35-7.45)
[2023-02-14 02:44] LABS: HEMATOCRIT 43.4 % (37.0-47.0); MEAN CELL VOLUME 89.3 fl (81.0-99.0); MEAN CORPUSCULAR HGB 30.5 pg (27.0-31.0); MEAN CORPUSCULAR HGB CONC 34.1 g/dl (33.0-37.0); MEAN PLATELET VOLUME 10.5 fl (9.6-12.3); PLATELET COUNT AUTOMATED 322 10*3/uL (130-400); RED BLOOD COUNT 4.86 10*6/uL (4.10-5.10); RED CELL DISTRI WIDTH 12.5 % (0-14.5); WHITE BLOOD COUNT 23.7 10*3/uL (4.8-10.8)
[2023-02-14 02:47] LABS: MANUAL DIFF REFLEX YES
[2023-02-14 03:08] LABS: BURR CELLS FEW; PLATELET SUFFICIENCY NORMAL (NORMAL); TOTAL CELLS COUNTED 100 #CELLS
[2023-02-14 03:09] LABS: ACANTHOCYTES FEW
[2023-02-14 03:11] LABS: BUN 8 mg/dl (9-23); CHLORIDE 110 mmol/L (98-107); POTASSIUM 4.2 mmol/L (3.4-5.1)
[2023-02-14 03:21] LABS: BASOPHILS 1 % (0-1)
[2023-02-14 06:40] LABS: BUN 8 mg/dl (9-23); CHLORIDE 109 mmol/L (98-107); POTASSIUM 3.7 mmol/L (3.4-5.1); SGPT/ALT 8 U/L (5-49); TOTAL PROTEIN 5.6 gm/dL (6.0-8.0)
[2023-02-14 06:47] LABS: ALKALINE PHOSPHATASE 55 U/L (46-116)
[2023-02-14 07:43] VITALS: BP 93/54
[2023-02-14 08:00] VITALS: BP 108/64
[2023-02-14 10:28] LABS: BUN 7 mg/dl (9-23); CHLORIDE 111 mmol/L (98-107); POTASSIUM 3.5 mmol/L (3.4-5.1)
[2023-02-14 12:00] VITALS: BP 100/66
[2023-02-14 14:28] LABS: BUN 7 mg/dl (9-23); CHLORIDE 110 mmol/L (98-107); POTASSIUM 3.3 mmol/L (3.4-5.1)
[2023-02-14 16:00] VITALS: BP 90/49
[2023-02-14 17:07] LABS: BUN 5 mg/dl (9-23); CHLORIDE 110 mmol/L (98-107); POTASSIUM 3.9 mmol/L (3.4-5.1)
[2023-02-14 20:00] VITALS: BP 98/61
[2023-02-15] VITALS: BP 106/70
[2023-02-15 06:20] LABS: ALKALINE PHOSPHATASE 58 U/L (46-116); BUN < 5 mg/dl (9-23); CHLORIDE 110 mmol/L (98-107); POTASSIUM 3.9 mmol/L (3.4-5.1); SGPT/ALT 9 U/L (5-49); TOTAL PROTEIN 5.5 gm/dL (6.0-8.0)
[2023-02-15 06:23] LABS: BASO # 0.1 10*3/uL (0.0-0.1); BASO % 0.7 % (0.0-1.0); EOS # 0.2 10*3/uL (0.0-0.4); EOS % 2.1 % (1.0-4.0); HEMATOCRIT 34.9 % (37.0-47.0); LYMPH # 3.3 10*3/uL (1.3-4.4); LYMPH % 45.9 % (27.0-41.0); MEAN CELL VOLUME 84.9 fl (81.0-99.0); MEAN CORPUSCULAR HGB 30.9 pg (27.0-31.0); MEAN CORPUSCULAR HGB CONC 36.4 g/dl (33.0-37.0); MEAN PLATELET VOLUME 10.5 fl (9.6-12.3); MONO # 0.5 10*3/uL (0.1-1.0); MONO % 6.9 % (3.0-9.0); NEUT # 3.1 10*3/uL (2.3-7.9); NEUT % 44.3 % (47.0-73.0); PLATELET COUNT AUTOMATED 234 10*3/uL (130-400); RED BLOOD COUNT 4.11 10*6/uL (4.10-5.10); RED CELL DISTRI WIDTH 12.6 % (0-14.5); WHITE BLOOD COUNT 7.1 10*3/uL (4.8-10.8)
[2023-02-15 08:00] VITALS: BP 103/68
[2023-02-15 12:00] VITALS: BP 112/75
[2023-02-15] MEDS ORDERED: VITAMIN D325 MCG PO (15:51)
[2023-02-15] MEDS ORDERED: Vitamin D (1,000 UNI PO (15:51)
[2023-02-15 16:00] VITALS: BP 121/87
== END 2023-02-15 16:25 | disposition home or self-care (01) | DRG 637 ==
LOC: ED 21:52 → EDHOLD 23:40 → ICCU 02-14 07:17 → 4E 02-14 20:34
PROVIDERS: Family Medicine; Internal Medicine; ADMIT Internal Medicine; ATTEND Internal Medicine
DX: E10.10 Type 1 diabetes mellitus with ketoacidosis without coma (principal); N17.0 Acute kidney failure with tubular necrosis; E87.1 Hypo-osmolality and hyponatremia; R65.10 Systemic inflammatory response syndrome (SIRS) of non-infectious origin without acute organ dysfunction; D75.1 Secondary polycythemia; D75.839 Thrombocytosis, unspecified; E87.8 Other disorders of electrolyte and fluid balance, not elsewhere classified; E88.09 Other disorders of plasma-protein metabolism, not elsewhere classified; R80.9 Proteinuria, unspecified; R31.29 Other microscopic hematuria; J45.909 Unspecified asthma, uncomplicated; E55.9 Vitamin D deficiency, unspecified; R82.71 Bacteriuria; D72.9 Disorder of white blood cells, unspecified; F17.290 Nicotine dependence, other tobacco product, uncomplicated; Z72.89 Other problems related to lifestyle; Z80.41 Family history of malignant neoplasm of ovary; Z79.899 Other long term (current) drug therapy; Z88.8 Allergy status to other drugs, medicaments and biological substances; Z71.6 Tobacco abuse counseling; Z91.030 Bee allergy status; Z83.3 Family history of diabetes mellitus; Z82.49 Family history of ischemic heart disease and other diseases of the circulatory system

== ENCOUNTER 2023-04-07 21:19 | Emergency (ER) | payer OTHER ==
[~2023-04-07] VITALS: Ht 142.2 cm; Wt 49.0 kg
[~2023-04-07 21:19] MED LIST changes: +VITAMIN D325 MCG PO; +Vitamin D (1,000 UNI PO
[2023-04-07 21:35] VITALS: BP 112/72
[2023-04-07] MEDS ORDERED: APRI 28 DAY TA1 EACH PO (21:36)
[2023-04-07 22:22] LABS: BASO # 0.1 10*3/uL (0.0-0.1); BASO % 0.7 % (0.0-1.0); EOS % 0.4 % (1.0-4.0); HEMATOCRIT 39.8 % (37.0-47.0); LYMPH # 2.2 10*3/uL (1.3-4.4); MEAN CELL VOLUME 87.9 fl (81.0-99.0); MEAN CORPUSCULAR HGB 29.8 pg (27.0-31.0); MEAN CORPUSCULAR HGB CONC 33.9 g/dl (33.0-37.0); MONO # 0.5 10*3/uL (0.1-1.0); MONO % 4.3 % (3.0-9.0); NEUT # 7.7 10*3/uL (2.3-7.9); NEUT % 73.3 % (47.0-73.0); PLATELET COUNT AUTOMATED 291 10*3/uL (130-400); RED BLOOD COUNT 4.53 10*6/uL (4.10-5.10); RED CELL DISTRI WIDTH 11.9 % (0-14.5); WHITE BLOOD COUNT 10.5 10*3/uL (4.8-10.8)
[2023-04-07 22:48] LABS: POTASSIUM 4.6 mmol/L (3.4-5.1); TOTAL PROTEIN 7.1 gm/dL (6.0-8.0)
[2023-04-08 01:40] LABS: BUN 14 mg/dl (9-23); CHLORIDE 106 mmol/L (98-107)
[2023-04-08 01:44] LABS: POTASSIUM 3.5 mmol/L (3.4-5.1)
== END 2023-04-08 02:15 | disposition home or self-care (01) ==
LOC: ED 21:19
PROVIDERS: Emergency Medicine
DX: E11.65 Type 2 diabetes mellitus with hyperglycemia (principal); E78.00 Pure hypercholesterolemia, unspecified; E87.1 Hypo-osmolality and hyponatremia; J45.909 Unspecified asthma, uncomplicated; Z91.030 Bee allergy status; Z88.8 Allergy status to other drugs, medicaments and biological substances; Z98.890 Other specified postprocedural states; F17.200 Nicotine dependence, unspecified, uncomplicated; Z96.41 Presence of insulin pump (external) (internal)

== ENCOUNTER 2023-10-07 17:42 | Emergency (ER) | payer SELFPAY ==
[~2023-10-07] VITALS: Ht 142.2 cm; Wt 49.0 kg
[~2023-10-07 17:42] MED LIST changes: +APRI 28 DAY TA1 EACH PO
[2023-10-07 17:56] VITALS: BP 113/80
[2023-10-07] MEDS ORDERED: Lidocaine Hydrochloride 15 ML UDC PO STA (18:02)
[2023-10-07] MEDS ORDERED: MG-AL HYDROXIDE/SIMETICONE 30 ML UDC PO STA (18:02)
[2023-10-07] MEDS ORDERED: Dicyclomine Hydrochloride 20 MG/10 ML OSYR PO STA (18:02)
[2023-10-07] MEDS ORDERED: PEPCID20 MG PO (18:05)
[2023-10-07] MEDS ORDERED: FAMOTIDINE 50 ML IV ONE (18:05)
[2023-10-07] MEDS ORDERED: Pantoprazole Sodium 40 MG VIAL IV ONE (18:05)
[2023-10-07] MEDS ORDERED: SODIUM CHLORIDE 0.9% 1,000 ML IV ONE (18:05)
[2023-10-07 18:20] LABS: BASO # 0.1 10*3/uL (0.0-0.1); EOS # 0.2 10*3/uL (0.0-0.4); EOS % 1.9 % (1.0-4.0); HEMATOCRIT 35.6 % (37.0-47.0); LYMPH # 2.7 10*3/uL (1.3-4.4); LYMPH % 28.6 % (27.0-41.0); MEAN CELL VOLUME 87.9 fl (81.0-99.0); MEAN CORPUSCULAR HGB 30.1 pg (27.0-31.0); MEAN CORPUSCULAR HGB CONC 34.3 g/dl (33.0-37.0); MEAN PLATELET VOLUME 9.8 fl (9.6-12.3); MONO # 0.8 10*3/uL (0.1-1.0); MONO % 8.4 % (3.0-9.0); NEUT # 5.5 10*3/uL (2.3-7.9); NEUT % 59.8 % (47.0-73.0); PLATELET COUNT AUTOMATED 302 10*3/uL (130-400); RED BLOOD COUNT 4.05 10*6/uL (4.10-5.10); RED CELL DISTRI WIDTH 12.1 % (0-14.5); WHITE BLOOD COUNT 9.3 10*3/uL (4.8-10.8)
[2023-10-07] MEDS ORDERED: Water, Sterile 10 ML VIAL ONE (18:25)
[2023-10-07 18:38] LABS: BUN 14 mg/dl (9-23); CHLORIDE 107 mmol/L (98-107); POTASSIUM 4.1 mmol/L (3.4-5.1)
== END 2023-10-07 19:01 | disposition home or self-care (01) ==
LOC: ED 17:42
PROVIDERS: Emergency Medicine
DX: K21.9 Gastro-esophageal reflux disease without esophagitis (principal); E10.65 Type 1 diabetes mellitus with hyperglycemia; J45.909 Unspecified asthma, uncomplicated; F17.200 Nicotine dependence, unspecified, uncomplicated; Z79.4 Long term (current) use of insulin; Z91.030 Bee allergy status; Z88.8 Allergy status to other drugs, medicaments and biological substances; Z98.890 Other specified postprocedural states

== ENCOUNTER 2023-12-02 16:02 | Emergency (ER) | payer SELFPAY ==
[~2023-12-02] VITALS: Ht 142.2 cm; Wt 49.0 kg
[~2023-12-02 16:02] MED LIST changes: +PEPCID20 MG PO
[2023-12-02 16:07] VITALS: BP 115/78
[2023-12-02] MEDS ORDERED: Glucagon Hydrochloride 1 MG SYR IM ONE (16:15)
[2023-12-02 17:03] LABS: VENOUS BLOOD GAS O2 SAT 93.1 % (60.0-85.0)
[2023-12-02 17:04] LABS: BASO # 0.1 10*3/uL (0.0-0.1); BASO % 0.7 % (0.0-1.0); EOS % 0.2 % (1.0-4.0); HEMATOCRIT 40.4 % (37.0-47.0); LYMPH # 1.6 10*3/uL (1.3-4.4); LYMPH % 16.8 % (27.0-41.0); MEAN CELL VOLUME 87.3 fl (81.0-99.0); MEAN CORPUSCULAR HGB 29.8 pg (27.0-31.0); MEAN CORPUSCULAR HGB CONC 34.2 g/dl (33.0-37.0); MEAN PLATELET VOLUME 9.9 fl (9.6-12.3); MONO # 0.5 10*3/uL (0.1-1.0); MONO % 5.2 % (3.0-9.0); NEUT # 7.2 10*3/uL (2.3-7.9); NEUT % 76.9 % (47.0-73.0); PLATELET COUNT AUTOMATED 330 10*3/uL (130-400); RED BLOOD COUNT 4.63 10*6/uL (4.10-5.10); RED CELL DISTRI WIDTH 12.8 % (0-14.5); WHITE BLOOD COUNT 9.4 10*3/uL (4.8-10.8)
[2023-12-02 17:31] LABS: ALKALINE PHOSPHATASE 66 U/L (46-116); BUN 9 mg/dl (9-23); CHLORIDE 106 mmol/L (98-107); POTASSIUM 3.9 mmol/L (3.4-5.1); SGPT/ALT 8 U/L (5-49); TOTAL PROTEIN 7.2 gm/dL (6.0-8.0)
== END 2023-12-02 18:04 | disposition home or self-care (01) ==
LOC: ED 16:02
PROVIDERS: Nurse Practitioner
DX: E10.649 Type 1 diabetes mellitus with hypoglycemia without coma (principal); J45.909 Unspecified asthma, uncomplicated; F17.200 Nicotine dependence, unspecified, uncomplicated; Z91.030 Bee allergy status; Z88.8 Allergy status to other drugs, medicaments and biological substances; Z98.890 Other specified postprocedural states; Z79.4 Long term (current) use of insulin

== ENCOUNTER 2024-02-19 21:43 | Emergency (ER) | payer SELFPAY ==
[~2024-02-19] VITALS: Ht 142.2 cm; Wt 46.3 kg
[2024-02-19 21:53] VITALS: BP 105/70
[2024-02-19] MEDS ORDERED: SODIUM CHLORIDE 0.9% 1,000 ML IV ONE (22:05)
[2024-02-19 22:23] LABS: BASO # 0.1 10*3/uL (0.0-0.1); BASO % 0.8 % (0.0-1.0); EOS # 0.2 10*3/uL (0.0-0.4); HEMATOCRIT 42.9 % (37.0-47.0); MEAN CORPUSCULAR HGB 29.9 pg (27.0-31.0); MEAN CORPUSCULAR HGB CONC 33.6 g/dl (33.0-37.0); MEAN PLATELET VOLUME 9.4 fl (9.6-12.3); MONO # 0.8 10*3/uL (0.1-1.0); MONO % 5.2 % (3.0-9.0); NEUT # 10.3 10*3/uL (2.3-7.9); NEUT % 71.5 % (47.0-73.0); PLATELET COUNT AUTOMATED 369 10*3/uL (130-400); RED BLOOD COUNT 4.82 10*6/uL (4.10-5.10); RED CELL DISTRI WIDTH 12.7 % (0-14.5); WHITE BLOOD COUNT 14.3 10*3/uL (4.8-10.8)
[2024-02-19 22:26] LABS: VENOUS BLOOD GAS O2 SAT 57.4 % (60.0-85.0)
[2024-02-19 22:30] LABS: BILIRUBIN Negative (Negative); BLOOD Negative (Negative); CLARITY Clear (Clear); COLOR Yellow (Yellow); GLUCOSE 3+ (Negative); KETONE Negative (Negative); LEUKO ESTERASE Negative (Negative); NITRITE Negative (Negative); PH 6.5 (4.5-8.0); SPECIFIC GRAVITY 1.025 (1.001-1.030); UROBILINOGEN 0.2 E.U./dl (0.0-1.0)
[2024-02-19 22:49] LABS: BACTERIA TRACE; RBC 0-2 rbc/hpf (0-2); WBC 0-2 wbc/hpf (0-5)
[2024-02-19 22:53] LABS: ALKALINE PHOSPHATASE 100 U/L (46-116); BUN 10 mg/dl (9-23); CHLORIDE 102 mmol/L (98-107); POTASSIUM 4.1 mmol/L (3.4-5.1); SGPT/ALT 8 U/L (5-49); TOTAL PROTEIN 7.7 gm/dL (6.0-8.0)
== END 2024-02-20 00:54 | disposition home or self-care (01) ==
LOC: ED 21:43
PROVIDERS: Nurse Practitioner Family
DX: O26.891 Other specified pregnancy related conditions, first trimester (principal); Z20.822 Contact with and (suspected) exposure to COVID-19; B34.9 Viral infection, unspecified; K21.9 Gastro-esophageal reflux disease without esophagitis; E87.1 Hypo-osmolality and hyponatremia; J45.909 Unspecified asthma, uncomplicated; E10.65 Type 1 diabetes mellitus with hyperglycemia; R10.2 Pelvic and perineal pain; F17.200 Nicotine dependence, unspecified, uncomplicated; Z3A.00 Weeks of gestation of pregnancy not specified; Z91.030 Bee allergy status; Z88.8 Allergy status to other drugs, medicaments and biological substances; Z98.890 Other specified postprocedural states; Z79.4 Long term (current) use of insulin